=== PATIENT | male | born 1985 | race American Indian/Alaskan Native ===

== ENCOUNTER 2016-04-09 18:05 | Emergency (ER) | payer SELFPAY ==
[2016-04-09] MEDS ORDERED: TYLENOL ONE (18:17)
[2016-04-09] MEDS ORDERED: TYLENOL PO ONE (18:18)
--- NOTE | 2016-04-09 18:58 | Emergency Department Report ---
Chief Complaint: Dental/Oral Stated Complaint: RT SIDE FACE SWOLLEN Time Seen by Provider: 04/09/16 18:56 - HPI History of Present Illness: patient is a 30 y/o male who presents due to tooth ache and left facial swelling x 3 days. Patient admits of having chills. - ROS Review of Systems: no nausea, vomiting or diarrhea. no URI symptoms. - Exam Vital Signs: Vital Signs 04/09/16 04/09/16 18:15 18:21 Temperature 103.1 F H Pulse Rate 102 H Respiratory 22 20 Rate Blood Pressure 152/95 O2 Sat by Pulse 100 Oximetry MSE screening note: Focused history and physical exam performed. Due to findings the following was ordered:cbc. cmp ED Disposition for MSE Condition: Stable
[2016-04-09 20:10] LABS: Basophils % (Auto) 0.3 % (0.0-1.8); Hematocrit 44.8 % (35.5-45.6); Hemoglobin 15.1 gm/dl (11.8-15.2); Mean Corpuscular HGB Conc 34 % (32-34); Mean Corpuscular Hemoglobin 32 pg (28-32); Mean Corpuscular Volume 94 fl (84-94); Platelet Count 128 K/mm3 (140-440); Red Blood Count 4.75 M/mm3 (3.65-5.03); Red Cell Distribution Width 15.1 % (13.2-15.2); White Blood Count 10.4 K/mm3 (4.5-11.0)
[2016-04-09 20:21] LABS: Alanine Aminotransferase 61 units/L (7-56); Albumin 4.3 g/dL (3.9-5); Albumin/Globulin Ratio 1.2 %; Alkaline Phosphatase 96 units/L (35-129); Bilirubin,Total 0.2 mg/dL (0.1-1.2); Blood Urea Nitrogen 6 mg/dL (9-20); Calcium 9.6 mg/dL (8.4-10.2); Carbon Dioxide 24 mmol/L (22-30); Chloride 92.8 mmol/L (98-107); Glucose 120 mg/dL (75-100); Potassium 3.9 mmol/L (3.6-5.0); Sodium 135 mmol/L (137-145); Total Protein 7.9 g/dL (6.3-8.2)
[2016-04-09 20:30] LABS: Anion Gap 22 mmol/L
[2016-04-10] MEDS ORDERED: TYLENOL PO ONE (01:14)
[2016-04-10] MEDS ORDERED: TORADOL IM ONE (01:15)
[2016-04-10] MEDS ORDERED: TORADOL IV ONE (01:39)
[2016-04-10] MEDS ORDERED: NACL 0.9% 1000 ML 1,000 ML IV ONE (01:40)
[2016-04-10] MEDS ORDERED: NACL ONE (02:00)
--- NOTE | 2016-04-10 02:58 | Emergency Department Report ---
HPI - General Chief Complaint: Dental/Oral Time Seen by Provider: 04/10/16 01:13 - HPI HPI: This is a 30-year-old Afro-[place] male presents to the emergency department with a 2-3 day history of right-sided facial swelling and discomfort. Patient has had some chills but otherwise denied knowing of any fever, but he does present with a fever Tmax 103.1. He denies any past medical history. He took some nonspecific "pain reliever" [id number] for his discomfort without any bleed. No recent travel or sick contacts at home. He does not have a primary care doctor or dentist. He denies any problems with swallowing, drooling. ED Past Medical Hx - Past Medical History Previous Medical History?: No - Surgical History Past Surgical History?: No - Social History Smoking Status: Current Every Day Smoker Substance Use Type: Alcohol, Marijuana, Non Opiate Pain - Medications Home Medications: Home Medications Medication Instructions Recorded Confirmed Last Taken Type Metoclopramide [Reglan] 10 mg PO TID #10 tab 02/02/16 Unknown Rx HYDROcodone/APAP 5-325 [[place] 1 each PO Q6HR PRN #12 tablet 04/10/16 Unknown Rx 5/325] Sulfamethoxazole/Trimethoprim 1 each PO BID #20 tablet 04/10/16 Unknown Rx [Bactrim DS TAB] ED Review of Systems ROS: Stated complaint: RT SIDE FACE SWOLLEN Other details as noted in HPI Comment: All other systems reviewed and negative Constitutional: denies: chills, weakness Eyes: denies: eye pain, eye discharge, vision change ENT: other (right-sided facial swelling and pain). denies: ear pain, throat pain Respiratory: denies: cough, shortness of breath, wheezing Cardiovascular: denies: chest pain, palpitations Gastrointestinal: denies: abdominal pain, nausea, diarrhea Genitourinary: denies: urgency, dysuria Musculoskeletal: denies: back pain, joint swelling, arthralgia Skin: denies: rash, lesions Neurological: denies: headache, weakness, paresthesias Physical Exam - Physical Exam Vital Signs: Vital Signs 04/09/16 04/09/16 04/10/16 18:15 18:21 00:46 Temperature 103.1 F H 102.4 F H Pulse Rate 102 H 102 H Respiratory 22 20 18 Rate Blood Pressure 152/95 Blood Pressure 133/96 [Right] O2 Sat by Pulse 100 100 Oximetry 04/10/16 04/10/16 01:16 02:09 Temperature Pulse Rate Respiratory 18 18 Rate Blood Pressure Blood Pressure [Right] O2 Sat by Pulse 100 Oximetry Physical Exam: GENERAL: The patient is well-developed well-nourished. HEENT: Normocephalic. Atraumatic. Extraocular motions are intact. Patient has moist mucous membranes. Pupils equal reactive to light bilaterally. No nystagmus. Oropharynx is clear. NECK: Supple. Trachea is midline. CHEST/LUNGS: Clear to auscultation. There is no respiratory distress noted. HEART/CARDIOVASCULAR: Regular. There is mild tachycardia. There is no gallop rub or murmur. ABDOMEN: Abdomen is soft, nontender. Patient has normal bowel sounds. There is no abdominal distention. SKIN: Skin is hot but dry. There is some inflammation and erythema to the right cheek. No fluctuance or induration palpable. NEURO: The patient is awake, alert, and oriented. The patient is cooperative. The patient has no focal neurologic deficits. The patient has normal speech. MUSCULOSKELETAL: There is no tenderness or deformity. There is no limitation range of motion. There is no evidence of acute injury. ED Course Vital Signs 04/09/16 04/09/16 04/10/16 18:15 18:21 00:46 Temperature 103.1 F H 102.4 F H Pulse Rate 102 H 102 H Respiratory 22 20 18 Rate Blood Pressure 152/95 Blood Pressure 133/96 [Right] O2 Sat by Pulse 100 100 Oximetry 04/10/16 04/10/16 01:16 02:09 Temperature Pulse Rate Respiratory 18 18 Rate Blood Pressure Blood Pressure [Right] O2 Sat by Pulse 100 Oximetry ED Medical Decision Making - Lab Data Result diagrams: 04/09/16 19:25 04/09/16 19:25 - Radiology Data Radiology results: report reviewed CT of the facial bones with contrast shows no acute bony MM normality. Parotid glands are unremarkable. There is a right facial cellulitis. No abscess. There are reactive enlarged right submandibular and cervical lymph nodes. - Medical Decision Making 30-year-old male presents to the emergency department with a 2-3 history of right-sided facial swelling and pain. On physical exam there is no visible palpable tooth abscess or caries. First there was concern for abscess versus parotitis versus mass, however, CT of the facial bones with IV contrast came back showing facial cellulitis without any abscess, parotid gland involvement. Patient does of fever but it came down to normal level and resolved with Tylenol and Motrin. With resolution of the fever, the heart rate came down to normal level as well. He was given IV dose of vancomycin here and will go home on antibiotics as well. He understands that if the cellulitis starts to worsen , involved the orbits, or if there is any intractable fever, that he needs to return to the emergency department immediately for probable admission. He will follow-up with his primary care doctor in the next few days. - Differential Diagnosis cellulitis, abscess, parotitis, mass Critical Care Time: No Critical care attestation.: If time is entered above; I have spent that time in minutes in the direct care of this critically ill patient, excluding procedure time. ED Disposition Clinical Impression: Facial cellulitis Disposition: DISCHARGED TO HOME OR SELFCARE Is pt being admited?: No Does the pt Need Aspirin: No Condition: Stable Instructions: Cellulitis (ED) Additional Instructions: Please follow-up with a primary care doctor the next few days. Take the antibiotics as prescribed. You can use Tylenol every 4 hours and Motrin every 6 hours, using weight-based dosing, as needed for discomfort and fever. Return to the emergency department with any worsening of the cellulitis, involvement of the eye orbits, intractable fever, or any acute distress. Please note that the pain medication that you've been given also has Tylenol in it so do not take too much Tylenol. You've been prescribed a medication that is sedating. Therefore this medication cannot be mixed with alcohol, or taken prior to driving, working, or being responsible for children. Prescriptions: Sulfamethoxazole/Trimethoprim [Bactrim DS TAB] 1 each PO BID #20 tablet HYDROcodone/APAP 5-325 [[place] 5/325] 1 each PO Q6HR PRN #12 tablet PRN Reason: Pain Referrals: PRIMARY MD REENA [Primary Care Provider] - 3-5 Days ADRIANA MEJIAS MD [Staff Physician] - 3-5 Days Time of Disposition: 04:47
--- NOTE | 2016-04-10 03:58 | Cat Scan Report ---
FINAL REPORT PROCEDURE: CT FACIAL BONES W CON TECHNIQUE: Computerized tomography of the facial bones and soft tissues with axial and coronal sections was performed from the cranial aspect of the frontal sinuses to the caudal portion of the mandible following the IV injection of iodinated nonionic contrast. HISTORY: Facial abscess vs parotitis vs mass COMPARISON: No prior studies are available for comparison. FINDINGS: Bones: No significant abnormality. Paranasal sinuses: There is mucosal thickening in the right maxillary sinus. The right osteal meatal unit is obstructed. The middle turbinates are pneumatized bilaterally.. Soft tissues: There is right facial soft tissue swelling suggesting cellulitis. There is no discrete mass or abscess.. Abnormal enhancement: None. Other: There are reactive enlarged right submandibular and cervical lymph nodes.. IMPRESSION: There is no acute bony abnormality. Parotid glands are unremarkable. There is right facial cellulitis. There is no abscess. There are reactive enlarged right submandibular and cervical lymph nodes..
[2016-04-10] MEDS ORDERED: VANCOMYCIN/NS 1 GM/250 ML 250 ML IV ONE (04:06)
[2016-04-10 04:16] VITALS: BP 132/82
== END 2016-04-10 06:09 | disposition home or self-care (01) ==
LOC: ED 18:05
DX: L03.211 Cellulitis of face (principal); F17.200 Nicotine dependence, unspecified, uncomplicated; F12.90 Cannabis use, unspecified, uncomplicated
CPT/HCPCS: 36415; 70487; 80053; 85025; 96361; 96365; 96366; 96375; 99284; J1885; J3370; J7030; Q9967

== ENCOUNTER 2017-08-20 21:34 | Emergency (ER) | payer SELFPAY ==
[2017-08-20 23:12] LABS: Basophils % (Auto) 0.4 % (0.0-1.8); Eosinophils # (Auto) 0.1 K/mm3 (0.0-0.4); Eosinophils % (Auto) 1.7 % (0.0-4.3); Hematocrit 49.1 % (35.5-45.6); Hemoglobin 16.7 gm/dl (11.8-15.2); Lymphocytes # (Auto) 1.5 K/mm3 (1.2-5.4); Lymphocytes % (Auto) 20.1 % (13.4-35.0); Mean Corpuscular HGB Conc 34 % (32-34); Mean Corpuscular Hemoglobin 33 pg (28-32); Mean Corpuscular Volume 96 fl (84-94); Monocytes # (Auto) 0.9 K/mm3 (0.0-0.8); Platelet Count 150 K/mm3 (140-440); Red Cell Distribution Width 14.4 % (13.2-15.2)
[2017-08-20 23:30] LABS: Alanine Aminotransferase 227 units/L (7-56); Albumin 4.7 g/dL (3.9-5); BUN/Creatinine Ratio 12; Blood Urea Nitrogen 11 mg/dL (9-20); Calcium 10.2 mg/dL (8.4-10.2); Hemolysis Index 6; Lipase 50 units/L (13-60)
[2017-08-21 02:46] LABS: Bilirubin,Urine NEG (Negative); Blood,Urine NEG (Negative); Color,Urine Amber (Yellow); Hyaline Casts,Urine 1 /LPF; Mucus,Urine FEW /HPF
[2017-08-21] MEDS ORDERED: ZOFRAN IV ONE (03:41)
[2017-08-21] MEDS ORDERED: NACL 0.9% 1000 ML 1,000 ML IV ONE (03:41)
--- NOTE | 2017-08-21 03:42 | Emergency Department Report ---
ED N/V/D HPI - General Chief complaint: Abdominal Pain Stated complaint: N/V/D Time Seen by Provider: 08/21/17 03:28 Source: patient, RN notes reviewed Mode of arrival: Ambulatory Limitations: No Limitations - History of Present Illness Initial comments: This is a 31-year-old male, unknown to this provider, does not have a primary care doctor, denies chronic medical conditions, denies history of abdominal surgeries, presenting to the ER today with complaint of nausea, vomiting, diarrhea for 3 days. Emesis is green, clear, and nonbloody. Diarrhea is green. He reports multiple episodes of nausea and vomiting and diarrhea over the past couple days. No recent antibiotic use, or travel. He occasionally consumes alcohol but indicates he does not drink excessively. He also denies testicular pain, urinary symptoms, sore throat. MD complaint: nausea, vomiting, diarrhea -: Gradual Description of Vomiting: bilious Description of Diarrhea: green Associated Abdominal Pain: No Consistency: constant Improves with: none Worsens with: none Associated Symptoms: nausea/vomiting. denies: myalgias, chest pain, cough, diaphoresis, fever/chills, headaches, loss of appetite, malaise, rash, dysuria, shortness of breath, syncope, weakness - Related Data Previous Rx's Medication Instructions Recorded Last Taken Type Metoclopramide [Reglan] 10 mg PO TID #10 tab 02/02/16 Unknown Rx HYDROcodone/APAP 5-325 [[place] 1 each PO Q6HR PRN #12 tablet 04/10/16 Unknown Rx 5/325] Sulfamethoxazole/Trimethoprim 1 each PO BID #20 tablet 04/10/16 Unknown Rx [Bactrim DS TAB] Ondansetron [Zofran Odt] 4 mg PO Q8HR PRN #20 tab.rapdis 08/21/17 Unknown Rx Allergies Allergy/AdvReac Type Severity Reaction Status Date / Time No Known Allergies Allergy Verified 12/27/14 05:35 ED Review of Systems ROS: Stated complaint: N/V/D Other details as noted in HPI Comment: All other systems reviewed and negative ED Past Medical Hx - Past Medical History Previous Medical History?: No - Surgical History Past Surgical History?: No - Social History Smoking Status: Current Every Day Smoker Substance Use Type: None - Medications Home Medications: Home Medications Medication Instructions Recorded Confirmed Last Taken Type Metoclopramide [Reglan] 10 mg PO TID #10 tab 02/02/16 Unknown Rx HYDROcodone/APAP 5-325 [[place] 1 each PO Q6HR PRN #12 tablet 04/10/16 Unknown Rx 5/325] Sulfamethoxazole/Trimethoprim 1 each PO BID #20 tablet 04/10/16 Unknown Rx [Bactrim DS TAB] Ondansetron [Zofran Odt] 4 mg PO Q8HR PRN #20 tab.rapdis 08/21/17 Unknown Rx ED Physical Exam - General Limitations: No Limitations General appearance: alert, in no apparent distress - Head Head exam: Present: atraumatic, normocephalic - Eye Eye exam: Present: normal appearance, EOMI. Absent: nystagmus - ENT ENT exam: Present: normal exam, normal orophraynx, mucous membranes moist, normal external ear exam - Neck Neck exam: Present: normal inspection, full ROM. Absent: tenderness, meningismus - Respiratory Respiratory exam: Present: normal lung sounds bilaterally. Absent: respiratory distress - Cardiovascular Cardiovascular Exam: Present: normal rhythm, bradycardia, normal heart sounds. Absent: systolic murmur, diastolic murmur, rubs, gallop - GI/Abdominal GI/Abdominal exam: Present: soft, normal bowel sounds, other (there is no right upper quadrant tenderness. There is no right lower quadrant tenderness). Absent: distended, tenderness, guarding, rebound, rigid, pulsatile mass - Rectal Rectal exam: Present: deferred - Extremities Exam Extremities exam: Present: normal inspection, full ROM, normal capillary refill. Absent: pedal edema, joint swelling, calf tenderness - Back Exam Back exam: Present: normal inspection, full ROM. Absent: tenderness, CVA tenderness (R), paraspinal tenderness, vertebral tenderness - Neurological Exam Neurological exam: Present: alert, oriented X3, CN II-XII intact, normal gait, other (Extraocular movements intact. Tongue midline. No facial droop. Facial sensation intact to light touch in the V1, V2, V3 distribution bilaterally. 5 and 5 strength in 4 extremities.. Sensation is intact to light touch in 4 extremities.). Absent: motor sensory deficit - Psychiatric Psychiatric exam: Present: normal affect, normal mood - Skin Skin exam: Present: warm, dry, intact, normal color. Absent: rash ED Course Vital Signs 0608/20/17 08/21/17 22:27 22:40 02:07 Temperature 98.7 F 98.7 F Pulse Rate 59 L 65 Respiratory 14 14 Rate Blood Pressure 144/98 144/98 155/93 Blood Pressure [Left] O2 Sat by Pulse 99 99 98 Oximetry 08/21/17 08/21/17 08/21/17 02:15 02:30 02:45 Temperature 98.7 F Pulse Rate 52 L Respiratory 16 Rate Blood Pressure 131/87 131/87 Blood Pressure 155/93 [Left] O2 Sat by Pulse 98 96 98 Oximetry 08/21/17 08/21/17 08/21/17 03:00 03:15 03:30 Temperature Pulse Rate Respiratory Rate Blood Pressure 121/89 131/87 143/112 Blood Pressure [Left] O2 Sat by Pulse 99 98 97 Oximetry 08/21/17 08/21/17 08/21/17 03:55 04:00 04:15 Temperature Pulse Rate Respiratory Rate Blood Pressure 121/89 130/88 130/88 Blood Pressure [Left] O2 Sat by Pulse 99 97 100 Oximetry 08/21/17 08/21/17 08/21/17 04:30 04:45 05:00 Temperature Pulse Rate Respiratory Rate Blood Pressure 124/93 143/112 122/79 Blood Pressure [Left] O2 Sat by Pulse 92 96 95 Oximetry 08/21/17 08/21/17 05:15 05:45 Temperature Pulse Rate Respiratory Rate Blood Pressure 130/88 124/93 Blood Pressure [Left] O2 Sat by Pulse 97 95 Oximetry ED Medical Decision Making - Lab Data Result diagrams: 08/20/17 22:46 08/20/17 22:46 Vital Signs 08/20/17 08/20/17 08/21/17 22:27 22:40 02:07 Temperature 98.7 F 98.7 F Pulse Rate 59 L 65 Respiratory 14 14 Rate Blood Pressure 144/98 144/98 155/93 Blood Pressure [Left] O2 Sat by Pulse 99 99 98 Oximetry 08/21/17 08/21/17 08/21/17 02:15 02:30 02:45 Temperature 98.7 F Pulse Rate 52 L Respiratory 16 Rate Blood Pressure 131/87 131/87 Blood Pressure 155/93 [Left] O2 Sat by Pulse 98 96 98 Oximetry 08/21/17 08/21/17 08/21/17 03:00 03:15 03:30 Temperature Pulse Rate Respiratory Rate Blood Pressure 121/89 131/87 143/112 Blood Pressure [Left] O2 Sat by Pulse 99 98 97 Oximetry 08/21/17 08/21/17 08/21/17 03:55 04:00 04:15 Temperature Pulse Rate Respiratory Rate Blood Pressure 121/89 130/88 130/88 Blood Pressure [Left] O2 Sat by Pulse 99 97 100 Oximetry 08/21/17 08/21/17 08/21/17 04:30 04:45 05:00 Temperature Pulse Rate Respiratory Rate Blood Pressure 124/93 143/112 122/79 Blood Pressure [Left] O2 Sat by Pulse 92 96 95 Oximetry 08/21/17 08/21/17 05:15 05:45 Temperature Pulse Rate Respiratory Rate Blood Pressure 130/88 124/93 Blood Pressure [Left] O2 Sat by Pulse 97 95 Oximetry Lab Results 08/20/17 08/20/17 08/21/17 Range/Units 22:46 22:46 01:20 WBC 7.5 (4.5-11.0) K/mm3 RBC 5.10 H (3.65-5.03) M/mm3 Hgb 16.7 H (11.8-15.2) gm/dl Hct 49.1 H (35.5-45.6) % MCV 96 H (84-94) fl MCH 33 H (28-32) pg MCHC 34 (32-34) % RDW 14.4 (13.2-15.2) % Plt Count 150 (140-440) K/mm3 Lymph % (Auto) 20.1 (13.4-35.0) % [place] % (Auto) 12.0 H (0.0-7.3) % Eos % (Auto) 1.7 (0.0-4.3) % Baso % (Auto) 0.4 (0.0-1.8) % Lymph # 1.5 (1.2-5.4) K/mm3 [place] # 0.9 H (0.0-0.8) K/mm3 Eos # 0.1 (0.0-0.4) K/mm3 Baso # 0.0 (0.0-0.1) K/mm3 Seg Neutrophils % 65.8 (40.0-70.0) % Seg Neutrophils # 4.9 (1.8-7.7) K/mm3 Sodium 135 L (137-145) mmol/L Potassium 3.9 (3.6-5.0) mmol/L Chloride 89.9 L (98-107) mmol/L Carbon Dioxide 28 (22-30) mmol/L Anion Gap 21 mmol/L BUN 11 (9-20) mg/dL Creatinine 0.9 (0.8-1.5) mg/dL Estimated GFR > 60 ml/min BUN/Creatinine Ratio 12 % Glucose 96 (75-100) mg/dL Calcium 10.2 (8.4-10.2) mg/dL Total Bilirubin 1.00 (0.1-1.2) mg/dL AST 184 H (5-40) units/L ALT 227 H (7-56) units/L Alkaline Phosphatase 120 (35-129) units/L Total Protein 8.2 (6.3-8.2) g/dL Albumin 4.7 (3.9-5) g/dL Albumin/Globulin Ratio 1.3 % Lipase 50 (13-60) units/L Urine Color Kimber (Yellow) Urine Turbidity Clear (Clear) Urine pH 6.0 (5.0-7.0) Ur Specific [place] 1.026 (1.003-1.030) Urine Protein 100 mg/dl (Negative) mg/dL Urine Glucose (UA) Neg (Negative) mg/dL Urine Ketones 20 (Negative) mg/dL Urine Blood Neg (Negative) Urine Nitrite Neg (Negative) Urine Bilirubin Neg (Negative) Urine Urobilinogen 4.0 (<2.0) mg/dL Ur Leukocyte Esterase Tr (Negative) Urine WBC (Auto) 3.0 (0.0-6.0) /HPF Urine RBC (Auto) 2.0 (0.0-6.0) /HPF U Epithel Cells (Auto) < 1.0 (0-13.0) /HPF Hyaline Casts 1 /LPF Urine Mucus Few /HPF - Medical Decision Making Differential diagnosis, including but not limited to: Enteritis, dehydration, electrolyte derangement Assessment and plan: 31-year-old male with no abdominal pain, no abdominal tenderness with nonspecific nausea, vomiting, diarrhea, laboratory studies suggested hemoconcentration, nonspecific transaminitis. The patient indicates he does not take Tylenol often, and he consumes alcohol recreationally. He is able to tolerate liquid feeds, and he is afebrile with reassuring vital signs and a benign and unremarkable physical exam. The patient will be managed expectantly, he will be discharged with Zofran for nausea, and he is counseled to abstain from acetaminophen and alcohol consumption, and to practice appropriate hand hygiene. He will be discharged with instructions to follow up with outpatient primary care, return precautions were reviewed. Critical care attestation.: If time is entered above; I have spent that time in minutes in the direct care of this critically ill patient, excluding procedure time. ED Disposition Clinical Impression: Nausea vomiting and diarrhea Disposition: DC-01 TO HOME OR SELFCARE Is pt being admited?: No Does the pt Need Aspirin: No Condition: Good Instructions: Acute Nausea and Vomiting (ED) Additional Instructions: Advanced tied as tolerated and as we have discussed. Avoid consumption of alcohol, acetaminophen, Tylenol. Eat gentle foods, such as redness, rice, apples, toast. Follow-up with a primary care doctor within the next 3-4 weeks. Laboratory studies suggested dehydration and nonspecific liver abnormalities. Follow-up with a primary care doctor to further address these and manage these. Please return to the ER right away with new pain, worsened pain, migration of pain, fevers, chills, lethargy, irritability, projectile vomiting, change in mental status, confusion, and inability to tolerate liquid feeds. Referrals: PRIMARY REENA, [Primary Care Provider] - 3-5 Days HUSSEIN JONES MD [Referring] - 3-5 Days
[2017-08-21 06:29] VITALS: BP 124/85
== END 2017-08-21 06:30 | disposition home or self-care (01) ==
LOC: ED 21:34
DX: R11.2 Nausea with vomiting, unspecified (principal); R19.7 Diarrhea, unspecified; F17.200 Nicotine dependence, unspecified, uncomplicated
CPT/HCPCS: 36415; 80053; 81001; 83690; 85025; 96361; 96374; 99283; J2405; J7030

== ENCOUNTER 2021-09-20 00:55 | Emergency (ER) | payer SELFPAY ==
[2021-09-20 01:02] VITALS: BP 173/101
== END 2021-09-21 01:19 | disposition left against medical advice (07) ==
LOC: ED 00:55
DX: R53.1 Weakness (principal); Z53.21 Procedure and treatment not carried out due to patient leaving prior to being seen by health care provider